=== PATIENT | male | born 1940 | race Caucasian/White ===

== ENCOUNTER 2024-07-22 09:48 | Emergency (ER) | payer MEDICARE, OTHER ==
[2024-07-22 10:21] LABS: BASOPHILS PERCENT AUTO 0.9 % (0.3-3.8); EOSINOPHILS ABSOLUTE AUTO 0.8 x10-3/uL (0.0-0.6); HEMATOCRIT 44.5 % (38.3-50.1); HEMOGLOBIN 15.2 g/dL (12.9-17.7); LYMPHOCYTES ABSOLUTE AUTO 2.2 x10-3/uL (0.5-4.5); LYMPHOCYTES PERCENT AUTO 44.5 % (15.8-45.3); MEAN CORPUSCULAR HEMOGLOBIN 31.2 pg (27.0-33.3); MEAN CORPUSCULAR HGB CONC 34.3 g/dL (28.7-35.3); MEAN PLATELET VOLUME 8.3 fL (6.7-11.0); MONOCYTES ABSOLUTE AUTO 0.6 x10-3/uL (0.0-1.2); MONOCYTES PERCENT AUTO 12.2 % (5.5-15.2); NEUTROPHILS ABSOLUTE AUTO 1.3 x10-3/uL (1.7-6.9); NEUTROPHILS PERCENT AUTO 26.4 % (40.3-71.8); PLATELET COUNT,PLT 153 x10(3)uL (117-477); RED BLOOD CELL COUNT 4.89 x10(6)uL (3.90-5.90); RED CELL DISTRIBUTION WIDTH 14.1 % (12.4-15.0)
[2024-07-22 10:24] LABS: BLOOD UREA NITROGEN,BUN 13 mg/dL (7-18); CALCIUM 8.7 mg/dL (8.6-10.2); CARBON DIOXIDE,CO2 27 mmol/L (21-32); CHLORIDE,CL 103 mmol/L (100-110); ESTIMATED GFR 73 mL/min (>60); GLUCOSE RANDOM 101 mg/dL (80-116); POTASSIUM,K 4.1 mmol/L (3.5-5.3); SODIUM,NA 140 mmol/L (135-145)
[2024-07-22] MEDS: Meclizine 25 MG Tab PO ONE (10:24)
[2024-07-22] MEDS: Sodium Chloride 0.9% 10 ML Syringe FLUSH PRN (10:25)
[2024-07-22 10:31] LABS: C-REACTIVE PROTEIN < 0.50 mg/dL (<0.50); TROPONIN I 8.7 pg/mL (4.0-60.3)
[2024-07-22 10:38] LABS: A/G RATIO 1.5; ALANINE AMINOTRANSFERASE,ALT 31 U/L (12-36); ALKALINE PHOSPHATASE 74 IU/L (56-112); ASPARTATE AMNIOTRANSFERASE,AST 15 IU/L (5-25); BILIRUBIN TOTAL 0.6 mg/dL (0.1-1.3); PROTEIN TOTAL,TP 6.7 g/dL (6.0-8.0)
== END 2024-07-22 11:10 | disposition home or self-care (01) ==
LOC: FB.ED 09:48
DX: R42 Dizziness and giddiness (principal)
CPT/HCPCS: 70450; 80053; 82947; 84484; 85025; 86140; 93005; 93010; 99283; 99284; A9270; J3490